=== PATIENT | male | born 1930 | race Caucasian/White ===

== ENCOUNTER → 2018-03-06 | Outpatient (CLI) | payer OTHER, BC ==
[2018-03-06 17:31] LABS: BASOPHIL % 0.2 % (0-2); PLATELET COUNT 268 x10^3mcL (130-400)
[2018-03-06 17:32] LABS: RED CELL DISTRIBUTION WIDTH 15.9 % (11.5-14.5)
[2018-03-06 17:48] LABS: ALBUMIN 2.9 g/dL (3.4-5.0); ALKALINE PHOSPHATASE 114 U/L (46-116); ALT/SGPT 50 U/L (16-63); AST/SGOT 30 U/L (15-37); BILIRUBIN TOTAL 0.4 mg/dL (0.20-1.00); CALCIUM 8.7 mg/dL (8.5-10.1); CARBON DIOXIDE 32.1 mmol/L (21-32); CHLORIDE SERUM 105 mmol/L (98-107); CREATININE SERUM 0.9 mg/dL (0.7-1.3); GLUCOSE SERUM 95 mg/dL (74-106); POTASSIUM SERUM 4.6 mmol/L (3.5-5.1); SODIUM SERUM 142 mmol/L (136-145); TOTAL PROTEIN, SERUM 7.6 g/dL (6.4-8.2)
== END | disposition home or self-care (01) ==
LOC: LB 17:01
DX: D64.9 Anemia, unspecified (principal)

== ENCOUNTER 2018-06-22 00:23 | Inpatient (IN) | payer OTHER, BC ==
[~2018-06-22] VITALS: Ht 175.3 cm; Wt 69.6 kg
[2018-06-22] VITALS (8 sets, daily range): BP systolic 91–141; BP diastolic 42–66
[2018-06-22] MEDS ORDERED: TRAMADOL HCL50 MG GT (00:44)
[2018-06-22] MEDS ORDERED: COREG6.25 M1 GT (00:44)
[2018-06-22] MEDS ORDERED: RANITIDINE HCL150 M1 GT (00:44)
[2018-06-22 01:43] LABS: PLATELET COUNT 318 x10^3mcL (130-400); RED CELL DISTRIBUTION WIDTH 14.9 % (11.5-14.5)
[2018-06-22 01:44] LABS: BASOPHIL % 5.1 % (0-2)
[2018-06-22 01:47] LABS: CALCIUM 8.9 mg/dL (8.5-10.1); CARBON DIOXIDE 27.2 mmol/L (21-32); CHLORIDE SERUM 107 mmol/L (98-107); CREATININE SERUM 1.3 mg/dL (0.7-1.3); GLUCOSE SERUM 110 mg/dL (74-106); POTASSIUM SERUM 3.8 mmol/L (3.5-5.1); SODIUM SERUM 145 mmol/L (136-145)
[2018-06-22 01:52] LABS: ALKALINE PHOSPHATASE 133 U/L (46-116); ALT/SGPT 32 U/L (16-63); AST/SGOT 30 U/L (15-37); BILIRUBIN TOTAL 0.54 mg/dL (0.20-1.00)
[2018-06-22 01:53] LABS: ALBUMIN 2.7 g/dL (3.4-5.0); TOTAL PROTEIN, SERUM 8.7 g/dL (6.4-8.2)
[2018-06-22 02:46] LABS: MAGNESIUM 2.6 mg/dL (1.8-2.4); PHOSPHOROUS 3.7 mg/dL (2.5-4.9)
[2018-06-22 02:47] LABS: CHOLESTEROL/HDL RATIO 5.5
[2018-06-22 02:49] LABS: microscopic required? NO
[2018-06-22 02:55] LABS: T3 TOTAL 0.78 ng/mL
[2018-06-22 03:03] LABS: FREE T4 0.86 ng/dL (0.76-1.46); FREE THYROXINE INDEX 1.8 ug/dL (1.4-4.5); T4(THYROXINE) 5.1 ug/dL (4.7-13.3)
[2018-06-22 03:20] LABS: UA SPECIFIC GRAVITY 1.015 (1.005-1.035); urine erythrocyte NEGATIVE (NEGATIVE)
[2018-06-22 05:24] LABS: PLATELET COUNT 185 x10^3mcL (130-400)
[2018-06-22 05:27] LABS: BASOPHIL % 0 % (0-2); RED CELL DISTRIBUTION WIDTH 15.6 % (11.5-14.5)
[2018-06-22 05:37] LABS: CALCIUM 7.6 mg/dL (8.5-10.1); CARBON DIOXIDE 25.3 mmol/L (21-32); CHLORIDE SERUM 114 mmol/L (98-107); GLUCOSE SERUM 101 mg/dL (74-106); MAGNESIUM 2.3 mg/dL (1.8-2.4); POTASSIUM SERUM 3.6 mmol/L (3.5-5.1); SODIUM SERUM 148 mmol/L (136-145)
[2018-06-23 05:24] LABS: PLATELET COUNT 191 x10^3mcL (130-400)
[2018-06-23 05:30] LABS: BASOPHIL % 0 % (0-2); RED CELL DISTRIBUTION WIDTH 15.3 % (11.5-14.5)
[2018-06-23 05:42] LABS: CHLORIDE SERUM 111 mmol/L (98-107); CREATININE SERUM 0.9 mg/dL (0.7-1.3); GLUCOSE SERUM 161 mg/dL (74-106); MAGNESIUM 2.2 mg/dL (1.8-2.4); PHOSPHOROUS 3.4 mg/dL (2.5-4.9); POTASSIUM SERUM 3.3 mmol/L (3.5-5.1); SODIUM SERUM 145 mmol/L (136-145)
[2018-06-23 08:00] VITALS: BP 124/49
[2018-06-23 12:00] VITALS: BP 138/64
[2018-06-23 16:00] VITALS: BP 163/68
[2018-06-23 19:10] VITALS: BP 169/70
[2018-06-23 21:30] VITALS: BP 158/65
[2018-06-24 05:03] VITALS: BP 106/65
[2018-06-24 06:11] LABS: PLATELET COUNT 200 x10^3mcL (130-400)
[2018-06-24 06:24] LABS: CALCIUM 7.8 mg/dL (8.5-10.1); CHLORIDE SERUM 111 mmol/L (98-107); CREATININE SERUM 0.9 mg/dL (0.7-1.3); GLUCOSE SERUM 105 mg/dL (74-106); POTASSIUM SERUM 3.8 mmol/L (3.5-5.1); SODIUM SERUM 145 mmol/L (136-145)
[2018-06-24 07:08] LABS: BASOPHIL % 0 % (0-2); RED CELL DISTRIBUTION WIDTH 15.4 % (11.5-14.5)
[2018-06-24 07:58] VITALS: BP 146/60
[2018-06-24 12:32] VITALS: BP 147/57
[2018-06-24 16:52] VITALS: BP 150/68
[2018-06-24 20:20] VITALS: BP 147/63
[2018-06-25 05:03] VITALS: BP 156/65
[2018-06-25 06:22] LABS: BASOPHIL % 0.1 % (0-2); PLATELET COUNT 200 x10^3mcL (130-400)
[2018-06-25 06:40] LABS: CALCIUM 7.4 mg/dL (8.5-10.1); CARBON DIOXIDE 24.8 mmol/L (21-32); CHLORIDE SERUM 111 mmol/L (98-107); CREATININE SERUM 0.8 mg/dL (0.7-1.3); GLUCOSE SERUM 129 mg/dL (74-106); POTASSIUM SERUM 3.1 mmol/L (3.5-5.1); SODIUM SERUM 147 mmol/L (136-145)
[2018-06-25 07:17] LABS: RED CELL DISTRIBUTION WIDTH 14.9 % (11.5-14.5)
[2018-06-25 09:23] VITALS: BP 138/72
[2018-06-25 13:34] VITALS: BP 133/76
[2018-06-25 17:50] VITALS: BP 102/66
[2018-06-25 19:40] VITALS: BP 105/74
[2018-06-26] VITALS (7 sets, daily range): BP systolic 104–130; BP diastolic 53–80; Ht 175.3 cm; Wt 69.6 kg
[2018-06-26 06:47] LABS: PLATELET COUNT 226 x10^3mcL (130-400)
[2018-06-26 06:54] LABS: BASOPHIL % 0 % (0-2); RED CELL DISTRIBUTION WIDTH 15.3 % (11.5-14.5)
[2018-06-26 07:00] LABS: CALCIUM 7.5 mg/dL (8.5-10.1); CARBON DIOXIDE 26.8 mmol/L (21-32); CHLORIDE SERUM 109 mmol/L (98-107); CREATININE SERUM 0.8 mg/dL (0.7-1.3); GLUCOSE SERUM 110 mg/dL (74-106); POTASSIUM SERUM 3.9 mmol/L (3.5-5.1); SODIUM SERUM 144 mmol/L (136-145)
[2018-06-26] MEDS ORDERED: PREDNISONE20 MG PO (12:16)
[2018-06-26] MEDS ORDERED: LEVOFLOXACIN500 M1 PO (12:18)
[2018-06-27] VITALS (7 sets, daily range): BP systolic 110–142; BP diastolic 49–61
== END 2018-06-27 23:32 | disposition short-term general hospital (02) | DRG 871 ==
LOC: ED 00:23 → DU 01:56 → IC 01:56 → DU 06-23 19:03
PROVIDERS: Emergency Medicine; Internal Medicine
DX: A41.9 Sepsis, unspecified organism (principal); R65.21 Severe sepsis with septic shock; E43 Unspecified severe protein-calorie malnutrition; J69.0 Pneumonitis due to inhalation of food and vomit; N17.0 Acute kidney failure with tubular necrosis; J96.20 Acute and chronic respiratory failure, unspecified whether with hypoxia or hypercapnia; C78.89 Secondary malignant neoplasm of other digestive organs; E87.2 Acidosis; J04.10 Acute tracheitis without obstruction; E83.41 Hypermagnesemia; E78.5 Hyperlipidemia, unspecified; I48.91 Unspecified atrial fibrillation; Z68.24 Body mass index [BMI] 24.0-24.9, adult; Z93.0 Tracheostomy status; Z93.1 Gastrostomy status; Z85.46 Personal history of malignant neoplasm of prostate; Z85.21 Personal history of malignant neoplasm of larynx; Z90.02 Acquired absence of larynx; Z92.3 Personal history of irradiation; Z22.321 Carrier or suspected carrier of Methicillin susceptible Staphylococcus aureus
CPT/HCPCS: 82962; 83880; 84439; 97110-GP; 97116-GP; 97530-GP; J0456; J0610; J0696; J1642; J1956; J2543; J2920; J7030; J7040; J7050; J7620; Q0092